=== PATIENT | female | born 1955 | race Caucasian/White ===

== ENCOUNTER 2022-12-22 07:49 | Day surgery (SDC) | payer OTHER ==
--- NOTE | 2022-12-18 09:17 | RAD REPORT ---
EXAM DESCRIPTION: RAD - Chest Pa And Lat (2 Views) - 12/18/2022 9:12 am CLINICAL HISTORY: Pre op pending trigger finger release, hypertension COMPARISON: No comparisons FINDINGS: Lines: None. Lungs: No evidence of edema or pneumonia. Pleural: No significant pleural effusions or pneumothorax. Cardiac: The heart size is within normal limits. Mediastinum: Within normal limits. Bones: No acute fractures. Other: None IMPRESSION: No acute cardiopulmonary disease.
[2022-12-18 10:02] LABS: Hematocrit 42.1 % (36.0-45.0); Lymphocytes % 21.2 % (15.3-44.8); MPV 8.5 fL (7.6-11.3); Platelets 195 thou/uL (152-406); RBC Red Blood Cell Count 4.79 M/uL (3.86-4.86)
[2022-12-18 10:06] LABS: Protime INR 1.01
[2022-12-18 10:20] LABS: Potassium 3.8 mEq/L (3.5-5.1)
[2022-12-22] MEDS ORDERED: propofoL 200 MG/20 ML VIAL IV ONE ×2 (08:12→09:34)
[2022-12-22] MEDS ORDERED: FENTANYL CITR 100 MCG/2 ML ONE (08:12)
[2022-12-22] MEDS ORDERED: MIDAZOLAM HCL 2 MG/2 ML INJ ONE (08:13)
[2022-12-22] MEDS ORDERED: LIDOCAINE 2% MPF 5 ML VIAL ONE (08:13)
[2022-12-22] MEDS ORDERED: ONDANSETRON 4 MG/2 ML VIAL ONE (08:13)
[2022-12-22] MEDS ORDERED: dexAMETHasone 10 MG/ML VIAL ONE (08:13)
[2022-12-22] MEDS ORDERED: KETOROLAC 30 MG/ML INJ ONE (08:13)
[2022-12-22] MEDS ORDERED: LIDOCAINE 1% MPF 30 ML VIAL ONE (08:18)
[2022-12-22] MEDS ORDERED: NS 0.9% VIAL 30 ML ONE (08:18)
[2022-12-22] MEDS: Ringers Lactate 1,000 ML IV ONE ×2 (08:20→08:45)
[2022-12-22] MEDS: BUPIVACAINE 0.25% PF 10 ML VIAL ONE ×2 (08:44→09:46)
[2022-12-22] MEDS: CEFAZOLIN SODIUM 1 GM/VIAL ONE ×2 (08:44→09:03)
--- NOTE | 2022-12-22 09:59 | P.BOP ---
Preoperative diagnosis: left trigger thumb Postoperative diagnosis: same Primary procedure: left thumb A1 tessy release Knit Goods Washer: NONE,NONE Estimated blood loss: 1 cc Specimen: none Findings: see dictation Anesthesia: General Complications: None Implants: none Fluids & blood products: per anesthesia record Transferred to: Recovery Room Condition: Good
--- NOTE | 2022-12-22 11:09 | OP ---
Date of Procedure: 12/22/2022 Surgeon: Angelo Antonio MD Preoperative Diagnosis: Left trigger thumb. Postoperative Diagnosis: Left trigger thumb. Procedure Performed: Left thumb A1 tessy release. Anesthesia: Joey block. Complications: None. Implants: None. Indication For Procedure: Margot is a 67-year-old female who presented to clinic with signs, sympto ms and physical exam findings consistent with left trigger thumb. Patient failed conservative treatm ent measures. Patient had significant pain and it interferes with her activities of daily living. Mainor benavidez discussed with the patient at length risks and benefits associated with operative and nonoperative treatment. She expressed understanding and elected to proceed with operative treatment. Description Of Procedure: After informed consent was obtained, the patient was identified in the pre operative holding area. The left thumb was marked. The patient was then brought back to the operati ng room, transferred to the operating table in supine fashion, placed under Joey block anesthesia. T he left hand was then prepped and draped in usual sterile fashion. A time-out was initiated. Corre t patient and procedure were confirmed and identified. Patient did receive her preoperative prophyla ctic antibiotics. Approximately, a 1 cm incision was made over the base of the thumb. Dissection wa s then taken down to the flexor tendon sheath, which was incised longitudinally. Portion of the flex or tendon sheath was excised to minimize risk of recurrence. The digital nerve was then retracted ___ procedure was performed to minimize protected at all times and flexor tendon was t hen brought out through the incision. There was full excursion of tendon without triggering noted. There was significant amount of tenosynovial fluid that was expressed from the increase . The wound was then irrigated thoroughly with normal saline. Skin was approximated using a 5-0 Prolen e. Sterile dressings were applied. The patient was awakened, transferred to PACU in stable conditio n. Postoperative Plan: The patient will be nonweightbearing and may work on range of motion exercises. She will follow up in 10 days for suture removal. CV/MODL Voice ID: [id number] Report ID: [id number]
[2022-12-22 11:49] VITALS: BP 118/74; TEMP 97.5; O2SAT 98
== END 2022-12-22 10:40 | disposition home or self-care (01) ==
LOC: OR 07:49
PROVIDERS: ATTEND Orthopaedic Surgery Sports Medicine
PROC: 0LN80ZZ Release Left Hand Tendon, Open Approach (ICD-10-PCS; principal; 2022-12-22 09:15)
DX: M65.312 Trigger thumb, left thumb (principal)
CPT/HCPCS: 85025; 80048; 36415; 85610; 85730; 71046; 26055; A4216; J2704; J2001 ×2; J2250; J3010; J1100; J2405; J7120; J0690

== ENCOUNTER 2024-08-07 16:03 | Emergency (ER) | payer OTHER ==
[2024-08-07 17:30] LABS: Absolute Basophils 0.1 K/uL (0-0.5); Absolute Eosinophils 0.2 K/uL (0-0.5); Absolute Lymphocytes (CBC) 1.7 K/uL (0.7-4.9); Absolute Monocytes 0.5 K/uL (0.1-1.3); Absolute Neutrophil 4.2 K/uL (1.8-8.0); Basophils % 0.9 % (0-1.3); Eosinophils % 3.3 % (0-4.4); Hematocrit 44.7 % (36.0-45.0); Hemoglobin 15.7 g/dL (12.0-15.0); Lymphocytes % 25.5 % (15.3-44.8); MCH 30.6 pg (27.0-35.0); MCHC 35.1 g/dL (32.0-36.0); MPV 8.2 fL (7.6-11.3); Monocytes % 7.9 % (3.3-12.3); Neutrophils % 62.4 % (41.7-73.7); Nucleated Red Blood Cells % 0.2 % (0-0); Platelets 214 thou/uL (152-406); RBC Red Blood Cell Count 5.13 M/uL (3.86-4.86); Red Cell Distribution Width 13.8 % (12.1-15.2)
[2024-08-07 17:35] LABS: Specific Gravity 1.023 (1.005-1.030); Sqamous Epithelial <5 /HPF (None Seen); Urine Bacteria <20 /HPF (<20); Urine Bilirubin NEGATIVE (Negative); Urine Blood Negative (Negative); Urine Clarity Clear (Clear); Urine Color Yellow (Yellow); Urine Culture Reflex Order NOT NEEDED; Urine Glucose NEGATIVE (Negative); Urine Ketones NEGATIVE (Negative); Urine Microscopic Reflex YN ORDER UMIC; Urine Mucus Slight /HPF (None Seen); Urine Nitrite NEGATIVE (Negative); Urine Protein NEGATIVE (Negative); Urine RBC <5 /HPF (None Seen); Urine Urobilinogen Normal (Normal); Urine WBC <5 /HPF (<5); Urine pH 5.5 (5.0-7.0)
[2024-08-07 18:36] LABS: Albumin 4.2 g/dL (3.4-5.0); Albumin/Globulin Ratio 1.1 (1.1-1.8); Anion Gap 11.8 mEq/L (5.0-15.0); Bilirubin Total 0.4 mg/dL (0.2-1.0); Globulin 3.7 g/dL (2.3-3.5); Potassium 3.8 mEq/L (3.5-5.1); Protein, Total 7.9 g/dL (6.4-8.2)
[2024-08-07] MEDS ORDERED: NA CHLORIDE 0.9% 500 ML ONE (18:53)
[2024-08-07] MEDS ORDERED: KETOROLAC 30 MG/ML INJ ONE (18:53)
[2024-08-07] MEDS ORDERED: ONDANSETRON 4 MG/2 ML VIAL ONE (18:53)
--- NOTE | 2024-08-07 20:00 | RAD REPORT ---
EXAMINATION: CT ABDOMEN AND PELVIS WITHOUT AND WITH CONTRAST CLINICAL INDICATION: right flank pain TECHNIQUE: CT abdomen and pelvis was performed, before and after the administration of IV contrast, a s per department protocol. Axial, sagittal and coronal reconstructions were obtained. One or more of the following dose reduction techniques were used: Automated exposure control, adjustment of the m A and/or kV according to patient size, and/or iterative reconstruction. Unless otherwise specified, incidental findings do not require dedicated imaging follow-up. COMPARISON: 07/31/2024 FINDINGS: LOWER CHEST: The visualized lung bases are clear. LIVER: Mild fatty liver is present. No focal lesion or biliary dilatation is seen. No intra or extr ahepatic biliary tree dilatation suspected. Grossly unremarkable gallbladder. SPLEEN: Normal size. No focal lesion. PANCREAS: No mass, ductal dilation, or bill-pancreatic fluid. ADRENALS: Normal; no mass. KIDNEYS AND URETERS: Normal size and contour. No hydronephrosis or hydroureter. URINARY BLADDER: Normal in appearance. No suspicious mass or stone. GASTROINTESTINAL TRACT: No evidence of bowel obstruction, free air, significant free fluid or abscess . There is mild diverticulosis coli of the sigmoid colon without diverticulitis. APPENDIX: Normal appendix. LYMPH NODES: No lymphadenopathy. REPRODUCTIVE ORGANS: No pathologic process. MUSCULOSKELETAL: Mild to moderate lower lumbar degenerative changes. ADDITIONAL FINDINGS: None. IMPRESSION: No acute finding is demonstrated.
--- NOTE | 2024-08-07 21:20 | ER ---
Nurse's Notes [facility] Name: Margot Yi Age: 69 yrs Sex: Female : 1955 Arrival Date: 08/07/2024 Time: 16:03 Bed 9 Private MD: Diagnosis: Dorsalgia, unspecified Presentation: 08/07 16:39 Chief complaint: Patient states: right flank pain x 1 month. Coronavirus screen: At jl this time, the client does not indicate any symptoms associated with coronavirus-19. Ebola Screen: No symptoms or risks identified at this time. Initial Sepsis Screen: Does the patient meet any 2 criteria? No. Patient's initial sepsis screen is negative. Does the patient have a suspected source of infection? No. Patient's initial sepsis screen is negative. Risk Assessment: Do you want to hurt yourself or someone else? Patient reports no desire to harm self or others. Onset of symptoms is unknown. Care prior to arrival: None. 16:39 Method Of Arrival: Ambulatory [facility] 16:39 Acuity: MIGUEL 3 jl7 Triage Assessment: 16:40 General: Appears in no apparent distress. uncomfortable, Behavior is calm, cooperative, jl7 appropriate for age. Pain: Complains of pain in right flank Pain currently is 10 out of 10 on a pain scale. GI: Stools are reported to be constipated. Last BM was August 07, 2024. Reports constipation. Historical: - Allergies: 16:40 Codeine; jl7 - PMHx: 16:40 Hypertensive disorder; Hypercholesterolemia; jl7 - PSHx: 16:40 Total abdominal hysterectomy; right knee; jl7 - Immunization history:: Adult Immunizations unknown. - Infectious Disease History:: Denies. - Social history:: Smoking status: Patient denies any tobacco usage or history of. Screenin:04 [facility] ED Fall Risk Assessment (Adult) History of falling in the last 3 months, kb3 including since admission No falls in past 3 months (0 pts) Confusion or Disorientation No (0 pts) Intoxicated or Sedated No (0 pts) Impaired Gait No (0 pts) Mobility Assist Device Used No (0 pt) Altered Elimination No (0 pt) Score/Fall Risk Level 0 - 2 = Low Risk Oriented to surroundings. Abuse screen: Denies threats or abuse. Denies injuries from another. Nutritional screening: No deficits noted. Tuberculosis screening: No symptoms or risk factors identified. Assessment: 19:04 Reassessment: Patient appears in no apparent distress at this time. General: Appears in kb3 no apparent distress. Behavior is calm, cooperative. Pain: Complains of pain in back and right flank. GI: Patient currently denies nausea. 21:00 Reassessment: No changes from previously documented assessment. 21:00 General: Pt ambulatory to restroom. Vital Signs: 16:39 BP 167 / 105; Pulse 83; Resp 17; Temp 98; Pulse Ox 100% ; Weight 79.38 kg; Height 5 ft. jl7 7 in. ; Pain 10/10; 19:04 BP 148 / 67; Pulse 81; Resp 18; Pulse Ox 100% ; kb3 21:45 BP 132 / 93; Pulse 80; Resp 18; Pulse Ox 98% ; Pain 7/10; kl 16:39 Body Mass Index 27.41 (79.38 kg, 170.18 cm) jl7 16:39 Pain Scale: Adult 7 21:45 Pain Scale: Adult ED Course: 16:07 Patient arrived in ED. im 16:16 Hao Natarajan MD is Attending Physician. rn 16:16 Bossman Che PA is PHCP. cp 16:40 Triage completed. jl7 16:40 Arm band placed on right wrist. jl7 17:23 CBC with Diff Sent. cc6 17:23 CMP Sent. cc6 17:23 Lipase Sent. cc6 17:23 No provider procedures requiring assistance completed. Inserted saline lock: 22 gauge kb3 in left antecubital area, using aseptic technique. 19:04 Patient has correct armband on for positive identification. Bed in low position. Call kb3 light in reach. Side rails up X 1. Adult w/ patient. Provided Education on: Plan of care, medications. 19:21 CT Abd/Pelvis- W/WO Contrast In Process Unspecified. EDMS 21:55 IV discontinued, intact, bleeding controlled, No redness/swelling at site. Administered Medications: 19:06 Drug: TORadol - Ketorolac IVP 15 mg IVP once Route: IVP; Site: left antecubital; kb3 21:53 Follow up: Response: No adverse reaction; Pain is unchanged, physician notified 19:06 Not Given (Patient Refused): ondansetron 4 mg IVP once; over 2 minutes kb3 19:06 Drug: NS 0.9% IV 500 ml 500 ml IV at 1 bolus once; to be given as a bolus over 30 kb3 minutes Volume: 500 ml; Route: IV; Rate: 1 bolus; Site: left antecubital; 21:52 Follow up: IV Status: Completed infusion; IV Intake: 500ml 21:46 Drug: Methocarbamol PO 1000 mg PO once Route: PO; 21:52 Follow up: Response: No adverse reaction Medication: 19:04 VIS not applicable for this client. kb3 Intake: 21:52 IV: 500ml; Total: 500ml. Outcome: 21:19 Discharge ordered by MD. josé 21:45 Discharged to home ambulatory, 21:45 Condition: stable 21:45 Discharge instructions given to patient, family, Instructed on discharge instructions, follow up and referral plans. medication usage, Demonstrated understanding of instructions, follow-up care, medications, Prescriptions given X 2, 21:55 Patient left the ED. Signatures: Dispatcher [employer] EDMS Heather Lee RN RN kl Nieto, Roman, MD MD rn Page, Corey, PA PA Zulma Jaime RN RN jl7 Bradberry, Kelly RN RN [email or web address] Paloma De Jesus Cassandra cc6 Corrections: (The following items were deleted from the chart) 16:41 16:40 Allergies: No Known Allergies; delmis jl7
--- NOTE | 2024-08-07 21:20 | EDPHYS ---
Physician Documentation [facility] Name: Margot Yi Age: 69 yrs Sex: Female : 1955 Arrival Date: 08/07/2024 Time: 16:03 Bed 9 Private MD: ED Physician Hao Natarajan HPI: 08/07 16:45 This 69 yrs old Female presents to ER via Ambulatory with complaints of Flank Pain, cp Constipation. 16:45 The patient complains of pain in the right flank. The pain radiates to the abdomen and cp across mid back. 16:45 Onset: The symptoms/episode began/occurred 1 month(s) ago. cp 16:45 Associated signs and symptoms: Pertinent negatives: diarrhea, fever, pain radiating to cp the lower extremities, vomiting. Patient reports she is currently taking prescribed antibiotics for UTI. Historical: - Allergies: 16:40 Codeine; jl7 - PMHx: 16:40 Hypertensive disorder; Hypercholesterolemia; jl7 - PSHx: 16:40 Total abdominal hysterectomy; right knee; jl7 - Immunization history:: Adult Immunizations unknown. - Infectious Disease History:: Denies. - Social history:: Smoking status: Patient denies any tobacco usage or history of. ROS: 16:50 Back: Positive for flank pain, on the right, Negative for injury or acute deformity, cp 16:50 Constitutional: Negative for body aches, chills, fever, poor PO intake, cp 16:50 Neck: Negative for pain with movement, pain at rest, 16:50 Cardiovascular: Negative for chest pain, palpitations, 16:50 Respiratory: Negative for cough, shortness of breath, wheezing, 16:50 Abdomen/GI: Positive for abdominal pain, Negative for nausea, vomiting, and diarrhea, 16:50 Neuro: Negative for altered mental status, dizziness, headache, numbness, weakness, 16:50 All other systems are negative, Exam: 16:50 Constitutional: The patient appears in no acute distress, alert, awake, non-toxic, well cp developed, well nourished, 16:50 Head/Face: Normocephalic, atraumatic. cp 16:50 Eyes: Periorbital structures: appear normal, Conjunctiva: normal, no exudate, no injection, Sclera: no appreciated abnormality, Lids and lashes: appear normal, bilaterally, 16:50 ENT: External ear(s): are unremarkable, Nose: is normal, Mouth: Lips: moist, Oral mucosa: moist, Posterior pharynx: Airway: no evidence of obstruction, patent, 16:50 Neck: ROM/movement: is normal, is supple, without pain, no range of motions limitations, 16:50 Chest/axilla: Inspection: normal, 16:50 Cardiovascular: Rate: normal, 16:50 Respiratory: the patient does not display signs of respiratory distress, Respirations: normal, no use of accessory muscles, no retractions, labored breathing, is not present, Breath sounds: are clear throughout, no decreased breath sounds, no stridor, no wheezing, 16:50 Abdomen/GI: Inspection: abdomen appears normal, Palpation: soft, in all quadrants, moderate abdominal tenderness, in the posterior aspect of right lateral abdomen and anterior aspect of right lateral abdomen, rebound tenderness, is not appreciated, 16:50 Back: pain, that is moderate, of the mid back area, 16:50 Skin: no rash present. Vital Signs: 16:39 BP 167 / 105; Pulse 83; Resp 17; Temp 98; Pulse Ox 100% ; Weight 79.38 kg; Height 5 ft. jl7 7 in. ; Pain 10/10; 19:04 BP 148 / 67; Pulse 81; Resp 18; Pulse Ox 100% ; kb3 21:45 BP 132 / 93; Pulse 80; Resp 18; Pulse Ox 98% ; Pain 7/10; kl 16:39 Body Mass Index 27.41 (79.38 kg, 170.18 cm) jl7 16:39 Pain Scale: Adult jl7 21:45 Pain Scale: Adult kl MDM: 20:24 Medical Screening Exam initiated cp 21:18 Data reviewed: vital signs, nurses notes, lab test result(s), radiologic studies, CT cp scan, and as a result, I will discharge patient. 21:18 Differential diagnosis: nephrolithiasis, pyelonephritis, UTI, ruptured AAA, dissecting cp AAA, colitis. I considered the following discharge prescriptions or medication management in the emergency department Medications were administered in the Emergency Department. See MAR. Care significantly affected by the following chronic conditions: Hypertension. Counseling: I had a detailed discussion with the patient and/or guardian regarding the historical points, exam findings, and any diagnostic results supporting the discharge/admit diagnosis, lab results, radiology results, the need for outpatient follow up, a family practitioner, to return to the emergency department if symptoms worsen or persist or if there are any questions or concerns that arise at home. Response to treatment: the patient's symptoms have mildly improved after treatment, and as a result, I will discharge patient. 08/07 16:40 Order name: CBC with Diff; Complete Time: 18:46 cp 08/07 18:46 Interpretation: Normal except: RBC 5.13; HGB 15.7. cp 08/07 16:40 Order name: CMP; Complete Time: 18:46 cp 08/07 18:46 Interpretation: Normal except: BUN 21; CRE 1.26; GFR 47; GLOB 3.7. cp 08/07 16:40 Order name: Lipase; Complete Time: 18:46 cp 08/07 16:40 Order name: UA Rfx Julio Cult if indicated; Complete Time: 18:46 cp 08/07 18:46 Interpretation: Normal except: UESTR 25. cp 08/07 16:40 Order name: CT Abd/Pelvis- W/WO Contrast; Complete Time: 20:38 cp 08/07 16:40 Order name: IV Saline Lock; Complete Time: 17:23 cp 08/07 16:40 Order name: Labs collected and sent; Complete Time: 17:23 cp Administered Medications: 19:06 Drug: TORadol - Ketorolac IVP 15 mg IVP once Route: IVP; Site: left antecubital; kb3 21:53 Follow up: Response: No adverse reaction; Pain is unchanged, physician notified kl 19:06 Not Given (Patient Refused): ondansetron 4 mg IVP once; over 2 minutes kb3 19:06 Drug: NS 0.9% IV 500 ml 500 ml IV at 1 bolus once; to be given as a bolus over 30 kb3 minutes Volume: 500 ml; Route: IV; Rate: 1 bolus; Site: left antecubital; 21:52 Follow up: IV Status: Completed infusion; IV Intake: 500ml kl 21:46 Drug: Methocarbamol PO 1000 mg PO once Route: PO; kl 21:52 Follow up: Response: No adverse reaction kl Disposition: 08/08 21:26 Chart complete. cp Disposition Summary: 08/07/24 21:19 Discharge Ordered Notes: Location: Home cp Problem: new cp Symptoms: have improved cp Condition: Stable cp Diagnosis - Dorsalgia, unspecified cp Followup: cp - With: Private Physician - When: 2 - 3 days - Reason: Worsening of condition Discharge Instructions: - Discharge Summary Sheet cp - Acute Back Pain, Adult cp - Musculoskeletal Pain cp - Back Exercises cp Forms: - Medication Reconciliation Form cp - Antibiotic Education cp - Prescription Opioid Use cp - Patient Portal Instructions cp - Leadership Thank You Letter cp Prescriptions: - Diclofenac Sodium 75 mg Oral Tablet Sustained Release - take 1 tablet ORAL route 2 times per day; 30 tablet; Refills: 0, Product cp Selection Permitted - methocarbamol 750 mg Oral tablet - take 1 tablet ORAL route 3 times per day; 30 tablet; Refills: 0, Product cp Selection Permitted Addendum: 08/11/2024 07:21 Co-signature as Attending Physician, Hao Natarajan MD I reviewed the patient's care r n provided by the Advanced Practice Provider and agree with the diagnosis and treatment plan. Signatures: Dispatcher [employer] Heather Ramirez RN RN kl Nieto, Roman, MD MD rn Page, Corey, PA PA cp Zulma Brewster RN RN jl7 Mary Alice Blackburn RN RN kb3 Corrections: (The following items were deleted from the chart) 08/07 16:41 16:41 CBC+H.LAB.BRZ ordered. EDMS EDMS 16:41 16:41 COMPREHENSIVE METABOLIC PANEL+C.LAB.BRZ ordered. EDMS EDMS 16:41 16:41 LIPASE+C.LAB.BRZ ordered. EDMS EDMS 16:41 16:41 UA Rfx Julio Cult if indicated+U.LAB.BRZ ordered. EDMS EDMS 16:41 16:41 Abdomen Pelvis W/Wo Con+CT.RAD.BRZ ordered. EDMS EDMS 16:41 16:40 Allergies: No Known Allergies; jl7 jl7
[2024-08-07] MEDS ORDERED: methocarbamoL 500 MG TAB ONE (21:47)
[2024-08-07 22:28] VITALS: TEMP 98
[2024-08-07 22:36] VITALS: BP 132/93; O2SAT 98
== END 2024-08-07 21:55 | disposition home or self-care (01) ==
LOC: ER 16:03
DX: M54.9 Dorsalgia, unspecified (principal); R10.31 Right lower quadrant pain; I10 Essential (primary) hypertension; E78.00 Pure hypercholesterolemia, unspecified
CPT/HCPCS: 96361; 85025; 81001; 36415; 83690; 80053; 74178; 96374; 99284; Q9967; J2405; J7040